=== PATIENT | male | born 1965 | race Caucasian/White ===

== ENCOUNTER 2022-04-14 06:57 | Day surgery (SDC) | payer OTHER, SELFPAY ==
[2022-03-29 13:59] VITALS: BMI 28.4
[2022-04-14 07:12] VITALS: BP 147/79; PULSE 71; RESP 20; TEMP 36.1; O2SAT 99
[2022-04-14] MEDS: LACTATED RINGERS 1,000 ML 150 ML IV CONT (07:24)
--- NOTE | 2022-04-14 07:35 | P.PNAN_ITS ---
Anes - Initial Pre Proc Eval Procedure: Operation Date: 04/14/22 09:30 Proposed Procedures p Screening Colonoscopy - Vamshi Ball MD Date/Time: 04/14/22 07:35 Surgeon: Vamshi Ball MD Pre Op Diagnosis: neoplasm screen, hxcolon polyp, fam hxcolon cancer Patient Data Age: 56 Gender: M Height: 1.78 m Weight: 89.5 kg Last Vital Signs Temp 97.0 F L 04/14/22 07:12 Pulse 71 04/14/22 07:12 Resp 20 04/14/22 07:12 BP 147/79 H 04/14/22 07:12 Pulse Ox 99 04/14/22 07:12 O2 Del Method Room Air 04/14/22 07:12 Allergies Allergy/AdvReac Type Severity Reaction Status Date / Time No Known Allergies Allergy Verified 04/14/22 07:11 Home Medications Medication Instructions Recorded Confirmed Type dextroamphetamine-amphetamine ER 30 mg PO DAILY 04/30/20 03/29/22 History 30 mg 24hr capsule,extend release (Adderall XR) Patient hx anesthesia problems: none Family hx anesthesia problems: none Results Review: All pre-operative results and documents have been reviewed as part of the pre- operative evaluation. [facility] Past Medical History Medical History (Updated 03/11/22 @ 15:45 by Wendy Urias PA-C) ADHD Family History Family History Grandparent Family history of malignant neoplasm Father Carcinoma of colon Social History Social History Smoking packs per day: 0.5 Smoking cigarettes per day: 10.0 Years smoked: 15 Smoking pack-years: 7.50 Smoking status: Former smoker Tobacco type: cigarettes Second hand tobacco smoke exposure: Yes Smoking end date: 03/26/20 Alcohol intake: current Drinks per week: 3 Alcohol use details: wine/beer Substance use: never Substance use type: does not use Living arrangements: with family Gender identity (if verbalized by the patient): Male Spiritual care concerns: No Agree to blood products: Yes Anes - Eval Final PreProcedure Day of Procedure 04/14/22 07:35 Patient weight: obese Heart: regular rate and rhythm Lungs: clear to auscultation Airway: Mallampati scale class II Neurological: alert and oriented Last oral intake: >/= 8 hours ASA classification: II Emergent: no Anesthetic plan: proceed Anesthesia type and monitoring: general GIVS and standard monitoring Results Review: All pre-operative results and documents have been reviewed as part of the pre- operative evaluation. Informed Consent: The patient's anesthetic plan and its attendant risks and benefits were discussed with the patient/family/POA. Questions were solicited and answers provided to the satisfaction of the patient/family/POA.
--- NOTE | 2022-04-14 08:54 | PM.HPGS ---
History of Present Illness History of Present Illness Consent: Risks, benefits, and alternatives have been discussed and questions answered. Patient agrees to proceed with procedure. Chief complaint: neoplasm screen, hxcolon polyp, fam hxcolon cancer Narrative: Harinder Sumner is a 56 year old male Here for colon cancer screening. His father had colon cancer. The patient self had 3 polyps removed about 5 years ago. Review of Systems Review of Systems: All systems reviewed & are unremarkable except as noted in HPI and below PMFSH Past Medical History Medical History ADHD Family History Family History Grandparent Family history of malignant neoplasm Father Carcinoma of colon Social History Social History Smoking packs per day: 0.5 Smoking cigarettes per day: 10.0 Years smoked: 15 Smoking pack-years: 7.50 Smoking status: Former smoker Tobacco type: cigarettes Second hand tobacco smoke exposure: Yes Smoking end date: 03/26/20 Alcohol intake: current Drinks per week: 3 Alcohol use details: wine/beer Substance use: never Substance use type: does not use Living arrangements: with family Gender identity (if verbalized by the patient): Male Spiritual care concerns: No Agree to blood products: Yes Meds Home Medications and Allergies Home Medications Medication Instructions Recorded Confirmed Type dextroamphetamine-amphetamine ER 30 mg PO DAILY 04/30/20 03/29/22 History 30 mg 24hr capsule,extend release (Adderall XR) Allergies Allergy/AdvReac Type Severity Reaction Status Date / Time No Known Allergies Allergy Verified 04/14/22 07:11 Vital Signs Vital Signs - 24 hr 04/14/22 07:12 Temperature 36.1 C L Pulse Rate 71 Respiratory Rate 20 Blood Pressure 147/79 H Pulse Oximetry 99 Oxygen Delivery Room Air Exam Const: General: alert Orientation/consciousness: patient oriented x3 Resp: Auscultation: clear to auscultation bilaterally Cardio: Rhythm: regular rhythm GI: GI Palp: Yes Soft to palpation and No Tenderness to palpation present (GI) Neuro: General: patient oriented x3 Assessment and Plan Assessment and plan (1) Screening for colon cancer: Code(s): Z12.11 - Encounter for screening for malignant neoplasm of colon Status: Acute Assessment and Plan: Colonoscopy with possible biopsy or polypectomy or cautery or injection of substances.
[2022-04-14 09:54] VITALS: BP 138/62; PULSE 67; RESP 20; O2SAT 96
[2022-04-14 10:04] VITALS: BP 133/82; PULSE 70; RESP 18; O2SAT 98
[2022-04-14 10:14] VITALS: BP 146/82; PULSE 71; RESP 13; O2SAT 100
== END 2022-04-14 10:17 | disposition home or self-care (01) ==
PROVIDERS: PCP Physician Assistant Medical; Visit Provider Internal Medicine Gastroenterology
PROC: 0DJD8ZZ Inspection of Lower Intestinal Tract, Via Natural or Artificial Opening Endoscopic (ICD-10-PCS; CPT 45378; principal; 2022-04-14 09:30)
DX: Z12.11 Encounter for screening for malignant neoplasm of colon (principal); K57.30 Diverticulosis of large intestine without perforation or abscess without bleeding; K64.8 Other hemorrhoids; K62.1 Rectal polyp; K63.5 Polyp of colon; Z80.0 Family history of malignant neoplasm of digestive organs; F90.9 Attention-deficit hyperactivity disorder, unspecified type; Z87.891 Personal history of nicotine dependence; E66.9 Obesity, unspecified; Z68.28 Body mass index [BMI] 28.0-28.9, adult
CPT/HCPCS: 45380; 45385; 88305; J2704; J7120

== ENCOUNTER 2022-04-16 08:17 | Outpatient (CLI) | payer OTHER, SELFPAY ==
--- NOTE | 2022-04-26 17:37 | WPDHOMESLEEP ---
Sleep Study - Home Unattended Date of Study: 04/16/22 Ordering Provider: Wendy Urias PA-C Interpreting Provider: Natividad Lewis, DO Home Sleep Study Type: Watch PAT Height: 1.78 m Weight: 88.451 kg Body Mass Index: 27.9 Neck Circumference (inches): 16.25 [place]: 8 Reason for Sleep Study Daytime hypersomnia and snoring despite using CPAP Sleep History The patient is a 56-year-old male with ADHD and previously diagnosed sleep apnea that had a sleep study ordered by his primary care so he can get new CPAP supplies. the patient occasionally awakens from sleep short of breath. He occasionally awakens at night with heartburn, belching or cough. He constantly snores loud enough that others complain. He occasionally has trouble sleeping when he has a cold. He occasionally wakes up gasping for air throughout the night. He occasionally has breathing problems at night observed by himself or others. He rarely sweats excessively at night. He occasionally has heart palpitations or irregular heartbeats during the night. He occasionally falls asleep during the day. He rarely falls asleep while driving. He denies cataplexy. He occasionally has trouble at school or work due to sleepiness. He occasionally feels unable to move while waking up or falling asleep. He occasionally experiences vivid dreamlike scenes upon awakening or falling asleep. He rarely feels afraid of going to sleep. He occasionally has nightmares. He occasionally remembers his dreams. He frequently has thoughts racing through his mind. He occasionally feels sad, depressed and anxious. He occasionally has muscular tension. He frequently notices parts of his body jerk. He occasionally kicks during the night. He frequently has crawling and aching feelings in his legs and occasionally has leg pain during the night. He occasionally grinds his teeth during sleep and occasionally awakens with morning jaw pain. He is occasionally bothered by pain during the day and occasionally awakened by pain during the night. He occasionally wakes up feeling stiff in the morning. He occasionally wakes up with sore or achy muscles. He frequently wakes up with pain in the neck, spine or other joints. He goes to bed at 10:30 p.m. on weekdays and 11:00 p.m. on the weekends. The amount of time it takes for him to fall asleep is variable. He will wake up 4 times throughout the night if he does not use a CPAP. He wakes up at 5:30 a.m. on weekdays and at 7:00 a.m. on the weekends. He typically gets 7 hours of sleep per night. He will stay in bed for 20 minutes after waking up in the morning. He currently lives with his and 3 children. He does not consume any caffeinated beverages within 2 hours of bedtime. He does not engage in physical exercise before bedtime. He will read before falling asleep. He will take naps in the afternoon or the evening but they are not refreshing. He drinks 2 cups of caffeinated beverage per day. He is a former smoker. He consumes 5 alcoholic beverages per weekend. He denies recreational drug use. [facility] Past Medical History Medical History ADHD Family History Family History Grandparent Family history of malignant neoplasm Father Carcinoma of colon Social History Social History Smoking packs per day: 0.5 Smoking cigarettes per day: 10.0 Years smoked: 15 Smoking pack-years: 7.50 Smoking status: Former smoker Tobacco type: cigarettes Second hand tobacco smoke exposure: Yes Smoking end date: 03/26/20 Alcohol intake: current Drinks per week: 3 Alcohol use details: wine/beer Substance use: never Substance use type: does not use Gender identity (if verbalized by the patient): Male Spiritual care concerns: No Agree to blood products: Yes
[2022-04-26 17:52] VITALS: BMI 27.9
--- NOTE | 2022-06-24 13:50 | SLEEP ---
new calls [id number]
== END 2022-04-20 11:38 | disposition home or self-care (01) ==
LOC: ANHCSM 08:21
PROVIDERS: PCP Physician Assistant Medical; Visit Provider Physician Assistant Medical
DX: G47.33 Obstructive sleep apnea (adult) (pediatric) (principal); E78.5 Hyperlipidemia, unspecified; Z12.5 Encounter for screening for malignant neoplasm of prostate; Z99.89 Dependence on other enabling machines and devices; R06.83 Snoring
CPT/HCPCS: 95800

== ENCOUNTER 2022-05-26 08:29 | Outpatient (CLI) | payer OTHER, SELFPAY ==
--- NOTE | 2022-06-17 10:35 | WPDSLEEPSTUD ---
Sleep Study Date of Study: 05/26/22 Ordering Provider: Wendy Urias PA-C Interpreting Physician: Jana Duarte MD Sleep Study Type: Split Polysomnogram Height: 1.78 m Weight: 88.451 kg Body Mass Index: 27.9 Neck Circumference (inches): 16.25 [place]: 8 Reason for Sleep Study * home sleep test 04/16/2022 with AHI 1.4, desaturation to 91%, symptoms were more severe than the home sleep test showed;he has ADHD, obstructive sleep apnea, was tested to get new supples; he presents for a split night study. Sleep History Harinder Sumner is a 56-year-old male with ADHD and previously diagnosed sleep apnea who is retesting to qualify for new CPAP supplies. He occasionally awakens from sleep feeling short of breath.? He occasionally awakens at night with heartburn, belching or coughing.? He constantly snores loudly enough that others complain.? He occasionally has trouble sleeping when he has a cold.? He occasionally wakes up gasping for air throughout the night.? He occasionally has breathing problems at night observed by others.? He rarely sweats excessively at night.? He occasionally notices heart palpitations or irregular heartbeats during the night.? He occasionally falls asleep during the day.? He rarely falls asleep while driving.? He denies muscle weakness with strong emotion. He occasionally has daytime difficulties due to excessive sleepiness.? He occasionally feels unable to move while waking up or falling asleep.? He occasionally experiences vivid dreamlike scenes upon awakening or falling asleep.? He rarely feels afraid of going to sleep.? He occasionally has nightmares.? He occasionally remembers his dreams.? He frequently has thoughts racing through his mind.? He occasionally feels sad, depressed and anxious.? He occasionally has muscular tension.? He frequently notices parts of his body jerking.? He occasionally kicks during the night.? He frequently has crawling and aching feelings in his legs and occasionally has leg pain during the night.? He occasionally grinds his teeth during sleep and occasionally awakens with morning jaw pain.? He is occasionally bothered by pain during the day and occasionally awakened by pain during the night.? He occasionally wakes up feeling stiff in the morning.? He occasionally wakes up with sore or achy muscles.? He frequently wakes up with pain in the neck, spine or other joints.? Normal bedtime is 10:30 p.m. on weekdays and 11:00 p.m. on the weekends.? The amount of time it takes for him to fall asleep is variable.? He will wake up 4 times throughout the night if he does not use a CPAP.? He wakes up at 5:30 a.m. on weekdays and at 7:00 a.m. on the weekends.? He typically gets 7 hours of sleep per night.? He will stay in bed for 20 minutes after waking up in the morning.? He currently lives with his and 3 children.? He takes naps in the afternoon or the evening however they are not refreshing.? Habits: Former smoker. Caffeine: 2 cups of caffeinated beverage per day.?Alcohol: 5 alcoholic beverages per weekend.? He denies recreational substances. [facility] Past Medical History Medical History (Updated 06/17/22 @ 12:54 by Jana Duarte MD) ADHD Dyslipidemia Hypothyroid Obstructive sleep apnea Family History Family History Grandparent Family history of malignant neoplasm Father Carcinoma of colon Social History Social History Smoking packs per day: 0.5 Smoking cigarettes per day: 10.0 Years smoked: 15 Smoking pack-years: 7.50 Smoking status: Former smoker Tobacco type: cigarettes Second hand tobacco smoke exposure: Yes Smoking end date: 03/26/20 Alcohol intake: current Drinks per week: 3 Alcohol use details: wine/beer Substance use: never Substance use type: does not use Living arrangements: with family Occupation/Education: occupation Gender identity (i
[2022-06-17 12:56] VITALS: BMI 27.9
== END 2022-05-27 07:00 | disposition home or self-care (01) ==
LOC: ANHCSM 08:30
PROVIDERS: PCP Physician Assistant Medical; Visit Provider Physician Assistant Medical
DX: G47.33 Obstructive sleep apnea (adult) (pediatric) (principal); Z99.89 Dependence on other enabling machines and devices; G25.81 Restless legs syndrome
CPT/HCPCS: 95811